=== PATIENT | male | born 1965 | race Caucasian/White ===

== ENCOUNTER 2022-09-03 11:23 | Observation (INO) ==
[2022-09-03] MEDS ORDERED: SODIUM CHLORIDE 0.9% 1,000 ML IV STA (12:44)
[2022-09-03] MEDS ORDERED: ONDANSETRON 4 MG/2 ML VIAL IV STA (12:54)
[2022-09-03 13:04] LABS: Basophils # 0.1 10*3/uL (0.0-0.2); Basophils % 0.5 % (0.0-0.8); Eosinophils % 0.3 % (0.00-10.9); Hematocrit 44.3 VOL% (42.0-52.0); Immature Granulocytes % 0.7 %; Immature Granulocytes Absolute 0.09 #; Lymphocytes # 1.6 10*3/uL (1.4-4.0); Lymphocytes % 12.2 % (21.2-54.2); Mean Corpuscular HGB Conc 33.9 GM/DL (32-36); Mean Corpuscular Volume 88.1 FL (87-102); Mean Platelet Volume 9.7 FL (9.6-12.0); Monocytes # 1.3 10*3/uL (0.11-0.8); Monocytes % 10.1 % (1.7-12.7); Neutrophils % 76.2 % (38.7-73.9); Platelet Count 225 T/CUMM (130-400); Red Blood Count 5.03 MC/CUMM (3.8-5.5); White Blood Count 13.2 T/CUMM (4-12)
[2022-09-03 13:54] LABS: Albumin 4.1 G/DL (3.4-5.0); Calcium 9.1 MG/DL (8.5-10.1); Total Protein 6.9 G/DL (6.4-8.2)
[2022-09-03 13:55] LABS: Osmolality,Calculated 278.5 MOS/KG (273-304); Potassium 4.1 MMOL/L (3.5-5.1)
[2022-09-03] MEDS ORDERED: HYDROmorphone 1 MG/1 ML SYRINGE IV STA (14:08)
[2022-09-03] MEDS ORDERED: ONDANSETRON 4 MG/2 ML VIAL IV PRN (15:40)
[2022-09-03] MEDS: POLYETHYLENE GLYCOL POWDER 17 GM PACK PO SCH (19:30)
[2022-09-03] MEDS: SODIUM CHLORIDE 0.9% 1,000 ML IV SCH (19:30)
[2022-09-03] MEDS: DOCUSATE SODIUM 100 MG CAPSULE PO SCH (20:19)
[2022-09-04] MEDS: SODIUM CHLORIDE 0.9% 1,000 ML IV SCH ×3 (04:41→20:10)
[2022-09-04 05:34] LABS: Basophils # 0.1 10*3/uL (0.0-0.2); Basophils % 0.5 % (0.0-0.8); Eosinophils # 0.2 10*3/uL (0.0-0.87); Eosinophils % 1.6 % (0.00-10.9); Hematocrit 39.8 VOL% (42.0-52.0); Hemoglobin 13.4 GM/DL (14.0-18.0); Immature Granulocytes % 0.5 %; Immature Granulocytes Absolute 0.05 #; Lymphocytes # 2.3 10*3/uL (1.4-4.0); Mean Corpuscular HGB Conc 33.7 GM/DL (32-36); Mean Corpuscular Volume 89.4 FL (87-102); Mean Platelet Volume 9.7 FL (9.6-12.0); Monocytes # 1.3 10*3/uL (0.11-0.8); Monocytes % 12.4 % (1.7-12.7); Platelet Count 201 T/CUMM (130-400); Red Blood Count 4.45 MC/CUMM (3.8-5.5); Red Cell Distribution Width 11.9 % (9.3-17.3); White Blood Count 10.3 T/CUMM (4-12)
[2022-09-04 05:35] LABS: Bilirubin,Urine Negative (Negative); Blood, Urine Large mg/dL (Negative); Glucose,Urine (UA) 50 mg/dL (Negative); Ketones,Urine Negative (Negative); Mucus,Urine Occasional /LPF (Occasional); Nitrite,Urine Negative (Negative); Protein,Urine Negative (Negative); RBC,Urine 12 /HPF (0-4); Urine Appearance CLEAR (Clear); Urine Color Yellow (Yellow); Urine Specific Gravity 1.008 (1.001-1.035); Urine Urobilinogen < 2.0 eU/dL (<2.0)
[2022-09-04 05:50] LABS: Albumin 3.2 G/DL (3.4-5.0); Bilirubin,Total 0.9 MG/DL (0.20-1.00); Calcium 8.1 MG/DL (8.5-10.1); Osmolality,Calculated 279.4 MOS/KG (273-304); Potassium 3.9 MMOL/L (3.5-5.1); Total Protein 6.1 G/DL (6.4-8.2)
[2022-09-04] MEDS: cefTRIAXone 1,000 MG in SODIUM CHLORIDE 0.9% 100 ML IV SCH (11:14)
[2022-09-04] MEDS: POLYETHYLENE GLYCOL POWDER 17 GM PACK PO SCH (14:29)
[2022-09-04] MEDS: MULTIVITAMIN (OCUVITE) TABLET PO SCH (14:29)
[2022-09-04] MEDS: TAMSULOSIN 0.4 MG CAPSULE PO SCH (14:29)
[2022-09-04] MEDS: FOLIC ACID 1 MG TABLET PO SCH (14:29)
[2022-09-04] MEDS: THIAMINE 100 MG TABLET PO SCH (14:30)
[2022-09-04] MEDS: DOCUSATE SODIUM 100 MG CAPSULE PO SCH (20:59)
[2022-09-04] MEDS: HYDROmorphone 1 MG/1 ML SYRINGE IV PRN (21:03)
[2022-09-05] MEDS: SODIUM CHLORIDE 0.9% 1,000 ML IV SCH ×3 (03:44→18:14)
[2022-09-05 05:27] LABS: Basophils % 0.5 % (0.0-0.8); Eosinophils # 0.3 10*3/uL (0.0-0.87); Eosinophils % 3.2 % (0.00-10.9); Hematocrit 39.8 VOL% (42.0-52.0); Hemoglobin 13.1 GM/DL (14.0-18.0); Immature Granulocytes % 0.5 %; Immature Granulocytes Absolute 0.04 #; Lymphocytes # 2.2 10*3/uL (1.4-4.0); Lymphocytes % 27.2 % (21.2-54.2); Mean Corpuscular HGB Conc 32.9 GM/DL (32-36); Mean Corpuscular Volume 90.5 FL (87-102); Mean Platelet Volume 10.1 FL (9.6-12.0); Monocytes # 0.8 10*3/uL (0.11-0.8); Monocytes % 10.1 % (1.7-12.7); Neutrophils % 58.5 % (38.7-73.9); Platelet Count 206 T/CUMM (130-400); Red Cell Distribution Width 12.1 % (9.3-17.3); White Blood Count 8.2 T/CUMM (4-12)
[2022-09-05 05:36] LABS: Calcium 8.7 MG/DL (8.5-10.1); Osmolality,Calculated 278.4 MOS/KG (273-304); Potassium 4.2 MMOL/L (3.5-5.1)
[2022-09-05 09:20] LABS: % Iron Saturation 23.4 % (18-50)
[2022-09-05 09:28] LABS: Folate 4.08 NG/ML (5.38-24.0)
[2022-09-05] MEDS: cefTRIAXone 1,000 MG in SODIUM CHLORIDE 0.9% 100 ML IV SCH (11:29)
[2022-09-05] MEDS ORDERED: LIDOCAINE 2% 5 ML VIAL ONE (14:35)
[2022-09-05] MEDS ORDERED: propofoL 200 MG/20 ML VIAL IV ONE (14:35)
[2022-09-05] MEDS ORDERED: MIDAZOLAM 2 MG/2 ML VIAL ONE (14:35)
[2022-09-05] MEDS ORDERED: fentaNYL 100 MCG/2 ML VIAL ONE (14:36)
[2022-09-05] MEDS ORDERED: SEVOFLURANE 1 UNIT/15 MINUTE INH ONE (15:33)
[2022-09-05] MEDS ORDERED: GLYCOPYRROLATE 0.4 MG/2 ML VIAL ONE (15:39)
[2022-09-05] MEDS: TAMSULOSIN 0.4 MG CAPSULE PO SCH (16:40)
[2022-09-05] MEDS: THIAMINE 100 MG TABLET PO SCH (16:40)
[2022-09-05] MEDS: MULTIVITAMIN (OCUVITE) TABLET PO SCH (16:40)
[2022-09-05] MEDS: POLYETHYLENE GLYCOL POWDER 17 GM PACK PO SCH (16:41)
[2022-09-05] MEDS: FOLIC ACID 1 MG TABLET PO SCH (16:41)
[2022-09-05] MEDS: DOCUSATE SODIUM 100 MG CAPSULE PO SCH (20:52)
[2022-09-05] MEDS: HYDROmorphone 1 MG/1 ML SYRINGE IV PRN (20:59)
[2022-09-06] MEDS: SODIUM CHLORIDE 0.9% 1,000 ML IV SCH ×2 (00:48→09:23)
[2022-09-06] MEDS: HYDROmorphone 1 MG/1 ML SYRINGE IV PRN ×2 (04:58→09:27)
[2022-09-06 05:45] LABS: Basophils # 0.1 10*3/uL (0.0-0.2); Basophils % 1.1 % (0.0-0.8); Eosinophils # 0.3 10*3/uL (0.0-0.87); Eosinophils % 3.1 % (0.00-10.9); Hematocrit 38.9 VOL% (42.0-52.0); Hemoglobin 12.8 GM/DL (14.0-18.0); Immature Granulocytes % 0.6 %; Immature Granulocytes Absolute 0.05 #; Lymphocytes # 2.2 10*3/uL (1.4-4.0); Lymphocytes % 27.2 % (21.2-54.2); Mean Corpuscular HGB Conc 32.9 GM/DL (32-36); Mean Corpuscular Volume 89.4 FL (87-102); Mean Platelet Volume 10.1 FL (9.6-12.0); Monocytes # 0.8 10*3/uL (0.11-0.8); Monocytes % 10.2 % (1.7-12.7); Neutrophils % 57.8 % (38.7-73.9); Platelet Count 212 T/CUMM (130-400); Red Blood Count 4.35 MC/CUMM (3.8-5.5); Red Cell Distribution Width 11.9 % (9.3-17.3)
[2022-09-06 06:00] LABS: Calcium 8.2 MG/DL (8.5-10.1); Osmolality,Calculated 281.3 MOS/KG (273-304); Potassium 3.8 MMOL/L (3.5-5.1)
[2022-09-06 07:19] VITALS: BP 112/60
[2022-09-06] MEDS ORDERED: CHOLECALCIFEROL 5,000 UNIT TABLET PO SCH (09:00)
[2022-09-06] MEDS: TAMSULOSIN 0.4 MG CAPSULE PO SCH (09:23)
[2022-09-06] MEDS: FOLIC ACID 1 MG TABLET PO SCH (09:23)
[2022-09-06] MEDS: cefTRIAXone 1,000 MG in SODIUM CHLORIDE 0.9% 100 ML IV SCH (09:24)
[2022-09-06] MEDS: MULTIVITAMIN (OCUVITE) TABLET PO SCH (09:24)
[2022-09-06] MEDS: THIAMINE 100 MG TABLET PO SCH (09:26)
[2022-09-06] MEDS: POLYETHYLENE GLYCOL POWDER 17 GM PACK PO SCH (09:28)
[2022-09-06] MEDS ORDERED: PHENAZOPYRIDINE 95 MG TABLET PO SCH (12:00)
[2022-09-10 15:07] LABS: Stone Source Kidney
== END 2022-09-06 11:51 | disposition home or self-care (01) ==
LOC: N.ED 11:23 → N.EDINP 11:23 → SUATTDRO 15:40 → N.5E 17:32
PROVIDERS: ADMIT Internal Medicine; ATTEND Internal Medicine